=== PATIENT | female | born 1955 | race Caucasian/White ===

== ENCOUNTER → 2017-01-08 | Outpatient (CLI) | payer BC ==
--- NOTE | 2017-01-08 14:39 | KCIC ---
Bilateral digital screening mammograms: Reason for examination: Routine screening. Comparison is made to previous study dated 02/23/2015. The skin and nipples show no abnormalities. No abnormal axillary lymph nodes are seen. The breast parenchyma is heterogeneously dense. (Breast density: Category C.) There are small nodular asymmetries which are unchanged. There are no new dominant masses, suspicious calcifications or architectural distortion. Impression: No evidence of malignancy. Recommend routine screening. Your patient's mammogram demonstrates that she has dense breast tissue (breast density category C or D), which could hide abnormalities, and if she has other risk factors for breast cancer that have been identified, she might benefit from supplemental screening tests that may be suggested by you as her ordering physician. Dense breast tissue, in and of itself, is a relatively common condition. Therefore, this information is not provided to cause undue concern, but rather to raise your awareness and to promote discussion with your patient regarding the presence of other risk factors, in addition to dense breast tissue. Your patient's mammography results will be sent to her. BI-RAD Category 2: Benign. "Our facility is accredited by the [employer] Mammography Program." This patient's information has been entered into a reminder system for the patient to be notified with the results of her examination and a target date for the next mammogram. Electronically signed by: Jocelyne Pedro MD (01/08/2017 2:35 PM) [id number]
== END | disposition home or self-care (01) ==
LOC: KCIC MAMMO 12:03
PROVIDERS: ATTEND Family Medicine
DX: Z12.31 Encounter for screening mammogram for malignant neoplasm of breast (principal)
CPT/HCPCS: G0202; 77067

== ENCOUNTER → 2017-01-09 | Outpatient (CLI) | payer BC ==
--- NOTE | 2017-01-09 16:06 | KCIC ---
CT ABD PEL W/ORAL CONTRST ONLY dated 01/09/2017 3:00 PM Indication: Abdominal pain, diarrhea, symptoms for 5 days, oral contrast only Comparison: No comparison is available. Technique: Contiguous axial imaging of the abdomen and pelvis performed without the administration of IV or oral contrast. One or more of the following individualized dose reduction techniques were utilized for this examination: 1. Automated exposure control 2. Adjustment of the mA and/or kV according to patient size 3. Use of iterative reconstruction technique Findings: Limited images of the lung bases show mild patchy groundglass opacity in the lower lobes and lingula, nonspecific. No consolidation or pleural effusion. Heart size within normal limits. No pericardial effusion. Diffuse low-density of the liver compatible with fatty infiltration. No apparent hepatic mass. Biliary tree normal in caliber. Gallbladder surgically absent. Spleen is normal in size. Pancreas, adrenal glands and kidneys are unremarkable. No hydronephrosis. Partially opacified GI tract is normal in caliber and contour. No focal bowel wall thickening. No inflammatory stranding in the mesentery. Appendix is normal in caliber. No ascites or lymphadenopathy. There are a few scattered diverticula within the colon. Images of pelvis shows some mild hazy inflammatory changes surrounding the sigmoid colon. No focal wall thickening or perforation. No evidence of abscess. Urinary bladder is nondistended. Uterus and adnexa otherwise unremarkable. No free fluid or lymphadenopathy. Bone windows show no acute findings. Mild multilevel spondylosis. IMPRESSION: 1. Findings consistent with mild acute sigmoid diverticulitis. No localized perforation or abscess at this time. 2. Fatty infiltration of the liver. 3. Status post cholecystectomy. 4. Normal appendix. 5. Mild patchy groundglass opacity at both lung bases, nonspecific. Electronically signed by: Maycol Kamara MD (01/09/2017 4:02 PM) [id number]
== END | disposition home or self-care (01) ==
LOC: KCIC CT 14:09
PROVIDERS: ATTEND Nurse Practitioner
DX: R10.9 Unspecified abdominal pain (principal); K57.32 Diverticulitis of large intestine without perforation or abscess without bleeding; K76.0 Fatty (change of) liver, not elsewhere classified; R91.8 Other nonspecific abnormal finding of lung field; Z90.49 Acquired absence of other specified parts of digestive tract
CPT/HCPCS: 74176